=== PATIENT | female | born 2000 | race Caucasian/White ===

== ENCOUNTER 2018-01-24 20:05 | Inpatient (IN) | payer OTHER ==
[~2018-01-24] VITALS: Ht 170.2 cm; Wt 54.0 kg
--- NOTE | 2018-01-24 22:40 | NUR ---
Intake Assessment Assessment done at intake office. Patient is alert & oriented x4, ambulatory with a steady gait. She is very anxious, agitated, noted pacing in the room, wringing her hands and is being argumentative. Respiration even & unlabored. Pt does not appears intoxicated. Vitals taken immediately B/P 122/77, TX 109, RR 18, Temp 97.8, O2Sat 96%. Explained to pt unit protocols such as Q4H Vitals signs check & regarding destruction of any controlled substances brought to facility and handling of all medications. Dr. Patel made aware of pt's admission. Will continue admission process when pt arrives in the unit.
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
[2018-01-25] MEDS ORDERED: MAGNESIUM HYDROXIDE 30 ML LIQUID UDC PO PRN
[2018-01-25] MEDS ORDERED: LOPERAMIDE HCL 2 MG CAPSULE PO PRN ×2
[2018-01-25] MEDS ORDERED: LORAZEPAM 2 MG/1 ML VIAL IM PRN
[2018-01-25] MEDS ORDERED: METHOCARBAMOL 750 MG TABLET PO PRN
[2018-01-25] MEDS ORDERED: MAG HYDROX/AL HYDROX/SIMETH 30 ML LIQUID UDC PO PRN
[2018-01-25] MEDS ORDERED: LORAZEPAM 1 MG TABLET PO PRN
[2018-01-25] MEDS ORDERED: MIRALAX 17 GM POWD.PACK PO PRN
[2018-01-25] MEDS ORDERED: DICYCLOMINE HCL 20 MG TABLET PO PRN
[2018-01-25] MEDS ORDERED: ONDANSETRON 4 MG/2 ML VIAL IM PRN
[2018-01-25] MEDS ORDERED: ONDANSETRON ODT 4 MG TAB.RAPDIS SL PRN
[2018-01-25] MEDS ORDERED: BUPRENORPHINE HCL 2 MG TAB.SUBL SL PRN
[2018-01-25 01:24] LABS: *URINE HCG, QUAL NEGATIVE (NEGATIVE)
[2018-01-25 01:38] LABS: *AMPHETAMINE, URINE POSITIVE (NEGATIVE); *BARBITURATE, URINE NEGATIVE (NEGATIVE); *CANNABINOID, URINE POSITIVE (NEGATIVE); *COCCAINE, URINE NEGATIVE (NEGATIVE); *OPIATE, URINE NEGATIVE (NEGATIVE); *PHENCYCLIDINE SCREEN,URINE NEGATIVE (NEGATIVE)
[2018-01-25] MEDS ORDERED: CARI1.5C PO (02:55)
[2018-01-25] MEDS ORDERED: BUSP5TAB3 PO (02:55)
[2018-01-25] MEDS ORDERED: CARI3CAP PO (02:55)
[2018-01-25 04:00] VITALS: BP 109/74
--- NOTE | 2018-01-25 07:23 | NUR ---
End of Shift Note: Patient is a 17 y.o female admitted last night for medically supervised withdrawal from multiple substances. Patient is alert & oriented x4, ambulatory with a steady gait. She does not appear intoxicated upon admission. She was a poor historian and she is avoidant to conversations. She was anxious and agitated during admission process. Pt was placed on PRN's to manage symptoms of withdrawal. No PRN's were given during my shift. COWS 6 CIWA 10 noted upon admission. Pt remained stable and vitals remained WNL. She was able to sleep for a total of 6 hours. Fluid intake is 500ml. Voided 1x with no bowel movement. Pt still asleep at this time. All needs attended. Safety measures in place. Will endorse pt to day shift nurse.
--- NOTE | 2018-01-25 07:58 | NUR ---
Start of shift note; Received report from night nurse. Patient is a 17 year old female admitted last night for medically supervised withdrawal from multiple substances. Patient was evaluated by MD last night and was placed on PRN medications for management of withdrawal symptoms. Patient's last COWS is 6 and last CIWA is 10 per endorsement, patient slept for 6 hours last night. Patient is AOX4, presented with anxiety, agitation ,patient is guarded and avoidant to eye contact and avoids conversation. Educated patient regarding the importance of compliance to treatment plan. Encouraged patient to participate in group therapy and activities. All safety measures secured. Will continue to monitor patient.
[2018-01-25 08:00] VITALS: BP 101/52
[2018-01-25 08:17] LABS: BASOPHILS % (AUTO) 0.2 % (0.0-2.0); EOSINOPHILS % (AUTO) 0.5 % (0.0-7.0); HEMATOCRIT 35.4 % (31.2-41.9); HEMOGLOBIN 12.2 g/dL (10.9-14.3); LYMPHOCYTES # (AUTO) 2.7 K/uL (20.0-40.0); LYMPHOCYTES % (AUTO) 37.6 % (20.5-74.5); MEAN CORPUSCULAR HEMOGLOBIN 30.7 uug (24.7-32.8); MEAN CORPUSCULAR HGB CONC 35 g/dL (32.3-35.6); MONOCYTES # (AUTO) 0.6 K/uL (2.0-10.0); MONOCYTES % (AUTO) 7.6 % (0-11); NEUTROPHILS # (AUTO) 3.9 K/uL (1.8-8.9); NEUTROPHILS % (AUTO) 54.1 % (31.5-64.5); PLATELET COUNT (AUTO) 172 K/uL (179-408); RED BLOOD CELL COUNT(AUTO) 3.98 MIL/uL (3.63-4.92); WHITE BLOOD COUNT (AUTO) 7.2 K/uL (3.8-11.8)
--- NOTE | 2018-01-25 08:30 | NUR ---
Nurse assessment note; Patient presented with anxiety, agitation, muscle aches, nasal stuffiness, reports chills/flushing, tremors, yawning and avoidant to eye contact. Patient's current COWS score is 7 and last CIWA 5. Patient last consumed ETOH/benzodiazepine, methamphetamine yesterday 01/24/18 prior to admission. Patient last consumed opiate on 11/23/17. Encouraged patient to verbalize feelings and report further withdrawal symptoms. Patient requested to be left alone so she can rest at this time. Will closely monitor patient.
[2018-01-25] MEDS: THIAMINE HCL 100 MG TABLET PO SCH (09:00)
[2018-01-25] MEDS ORDERED: TUBERCULIN,PURIF.PROT.DERIV. 5 TU/0.1 ML TEST ID ONE (09:00)
[2018-01-25] MEDS: MULTIVITAMINS,THERAPEUTIC TABLET PO SCH (09:00)
[2018-01-25] MEDS: FOLIC ACID 1 MG TABLET PO SCH (09:00)
[2018-01-25 09:42] LABS: ETHANOL < 3 MG/DL (0-0)
[2018-01-25 11:01] LABS: ALANINE AMINOTRANSFERASE 33 U/L (14-59); ALKALINE PHOSPHATASE 66 U/L (50-136); ASPARTATE AMINOTRANSFERASE 60 U/L (15-37); BILIRUBIN,TOTAL 1.1 mg/dL (0.2-1.0); CARBON DIOXIDE 21 mmol/L (21-32); CHLORIDE 107 mmol/L (98-107); CREATININE 0.8 mg/dL (0.6-1.3); GLUCOSE 78 mg/dL (74-106); POTASSIUM 3.5 mmol/L (3.5-5.1); TOTAL PROTEIN, SERUM 6.7 g/dL (6.4-8.2); UREA NITROGEN, BLOOD 14 mg/dL (7-18)
--- NOTE | 2018-01-25 11:45 | NUR ---
MD communication; Dr. Lawton is up on the unit. MD evaluated patient. MD gave verbal order to discontinue Subutex 4mg SL PRN. MD also ordered Nicotine gum 4mg Q2H max of 8 pieces per day. Orders carried out.
--- NOTE | 2018-01-25 11:54 | NUR ---
Patient communication; Patient is AOX4, clarified information with patient. Patient reported that she was discharged from [facility] by the [facility] on 01/21/18 PM patient then relapsed after being discharged from treatment Center. Patient also admitted that she was diagnosed with bipolar disorder. Psychiatrist to evaluate patient today. Patient reported that her mother convinced her to come to detox. Educated patient regarding the importance of sobriety, patient verbalized understanding. Patient agreed to adhere to unit protocols and policies. Encouraged patient to verbalize feelings and to participate in group therapies, patient verbalized understanding.
[2018-01-25 12:00] VITALS: BP 90/64
--- NOTE | 2018-01-25 12:00 | NUR ---
Nurse assessment note; Patient presented with anxiety, agitation, muscle aches, nasal stuffiness, reports chills/flushing, tremors and avoidant to eye contact. Patient's COWS score remained 7 and CIWA is 5. Encouraged patient to verbalize feelings and report further withdrawal symptoms. Per MD patient's s/s at this time does not require PRN Ativan , to administer PRN medication later when patient starts to show significant s/s of withdrawals. Will closely monitor patient.
[2018-01-25] MEDS: NICOTINE 14 MG/24HR PATCH TD SCH (12:55)
--- NOTE | 2018-01-25 12:57 | NUR ---
MD communication; Patient requested for nicotine patch. MD gave verbal order for Nicotine patch 14mg. Order carried out and given to patient.
[2018-01-25] MEDS: HYDROXYZINE PAMOATE 25 MG CAPSULE PO PRN ×2 (13:02→20:16)
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
--- NOTE | 2018-01-25 13:06 | NUR ---
PRN medication; Patient appears anxious, MD ordered to administer PRN Vistaril 25mg PO for anxiety. Medication given as per MD order. Will continue to monitor patient.
[2018-01-25 13:39] LABS: LIPASE 138 U/L (73-393)
--- NOTE | 2018-01-25 14:06 | NUR ---
Re-assessment; Patient appears less anxious, PRN Vistaril noted to be effective.
--- NOTE | 2018-01-25 15:17 | NUR ---
Re-assessment; Patient verbalized effectiveness of Robaxin, patient denies muscle aches at this time. Addendum: 01/25/18 at 0902 by KENYA RAMIREZ LVN Clarification ; Re-assessment done at 0637
[2018-01-25] MEDS: LORAZEPAM 1 MG TABLET PO PRN ×2 (15:33→20:12)
--- NOTE | 2018-01-25 15:33 | NUR ---
PRN Ativan; Patient is currently showing significant s/s of withdrawals manifested by increased anxiety, agitation, diaphoresis, tremors, restless legs, muscle aches, fatigue with current CIWA score of 11 and COWS score of 6. PRN Ativan 1mg PO given for elevated CIWA score. Patient verbalized that she is having cravings, new coping mechanisms introduced to patient to help cope with stress and cravings. Encouraged patient to participate in group therapy and activities. Will continue to monitor patient.
[2018-01-25 16:00] VITALS: BP 114/68
[2018-01-25] MEDS: busPIRone 5 MG TABLET PO SCH (16:09)
[2018-01-25] MEDS: METHOCARBAMOL 500 MG TABLET PO PRN (16:17)
--- NOTE | 2018-01-25 16:17 | NUR ---
PRN Robaxin; Patient is complaining of muscle aches, mild diffuse discomfort. PRN Robaxin 750mg PO given for muscle aches per MD order. Will continue to monitor patient.
--- NOTE | 2018-01-25 16:33 | NUR ---
Re-assessment Ativan; Patient appears less anxious and less agitated. Patient's CIWA score went down from 11 to CIWA score of 8. PRN Ativan noted to be effective.
--- NOTE | 2018-01-25 17:38 | NUR ---
Therapist prompted client to attend daily group therapy sessions. Client stated that she would if she was feeling well enough to do so.
--- NOTE | 2018-01-25 18:40 | NUR ---
End of shift note; Patient is AOX4, presented with anxiety, sweats, muscle aches, loss of motivation, complaining of fatigue and loss of appetite. Patient received PRN Ativan 1mg PO and PRN Robaxin 750 mg PO, both noted to be effective. Patient was placed on PRN medications only to help reduce withdrawal symptoms, no taper required per MD. Patient agreed to adhere to unit protocol and policies and agreed to remain compliant with treatment plan. All safety measures secured. Met all needs.
--- NOTE | 2018-01-25 19:30 | NUR ---
START OF SHIFT Pt is a 17 y/o female admitted on 01/24/18 for ETOH, benzo, opiate and meth withdrawal. Pt has PRN Ativan available at this time. Last COWS 6 and CIWA 8 and PRN Ativan 1 mg, Robaxin and Vistaril administered during day shift. Upon assessment pt presents with anxiety, agitation, disheveled appearance, unkempt room, chills, headache, body aches, depressed affect, photosensitivity, sensitivity to sounds, difficulty falling asleep, poor eye contact, slumped posture, poor appetite, and restlessness. Pt verbalizes cravings and feelings of wanting to leave AMA. Medications due. Safety measures in place. Call light within reach. Will continue to monitor.
[2018-01-25 20:00] VITALS: BP 100/46
--- NOTE | 2018-01-25 20:00 | NUR ---
COWS 11 AND CIWA 15 Pt presents with anxiety, agitation, chills, headache, body aches, photosensitivity, sensitivity to sounds, nausea, poor appetite, and restlessness. Pt refuses Zofran for nausea. No episodes of vomiting.
[2018-01-25] MEDS: VRAYLAR 3 MG PO SCH (20:12)
[2018-01-25] MEDS: NICOTINE POLACRILEX 4 MG GUM-PK OF TEN BC PRN (20:12)
--- NOTE | 2018-01-25 20:12 | NUR ---
PRN ATIVAN 1 MG, MOTRIN, TYLENOL, BENADRYL AND NICOTINE GUM ADMINISTRATION CIWA 15. Pt presents with anxiety, agitation, restlessness, headache, nausea, photosensitivity, sensitivity to sounds, and chills. Pt refuses Zofran for nausea. Pt complains of 7/10 pain, headache and body aches. Pt requests sleep aid and nicotine gum for cravings. Nicotine patch removed from morning. Safety measures in place. Call light within reach. Will continue to monitor.
[2018-01-25] MEDS: ACETAMINOPHEN 325 MG TABLET PO PRN (20:13)
[2018-01-25] MEDS: diphenhydrAMINE 50 MG CAPSULE PO PRN (20:13)
[2018-01-25] MEDS: IBUPROFEN 600 MG TABLET PO PRN (20:13)
[2018-01-25 21:05] VITALS: BP 111/61
[2018-01-25] MEDS: CLONIDINE HCL 0.1 MG TABLET PO PRN (21:09)
--- NOTE | 2018-01-25 21:12 | NUR ---
PRN ATIVAN, MOTRIN, TYLENOL, BENADRYL REASSESSMENT AND CLONIDINE ADMINISTRATION CIWA 12. Pt has improvement in agitation and anxiety. Pt reports headache improved to tolerable level and reports persistent body aches 01/28. Pt remains awake, but is laying in bed and appears fatigued. Pt requests Clonidine for persistent anxiety, agitation, and chills. BP 111/61 and HR 80. Safety measures in place. Call light within reach. Will continue to monitor. Clonidine administered at 2109.
--- NOTE | 2018-01-25 22:09 | NUR ---
PRN CLONIDINE REASSESSMENT Pt laying in bed with eyes closed, medication noted effective. Respirations even and unlabored. Safety measures in place. Call light within reach. Will continue to monitor.
[2018-01-26] VITALS: BP 98/43
--- NOTE | 2018-01-26 | NUR ---
COWS/CIWA DEFERRED Pt laying in bed with eyes closed, COWS/CIWA deferred, to be assessed when pt is awake per orders. Respirations even and unlabored. Safety measures in place. Call light within reach. Will continue to monitor.
[2018-01-26 04:00] VITALS: BP 86/47
--- NOTE | 2018-01-26 07:00 | NUR ---
END OF SHIFT Pt is a 17 y/o female admitted on 01/24/18 for ETOH, benzo, opiate and meth withdrawal. Pt has PRN Ativan available at this time. Pt presented with anxiety, agitation, disheveled appearance, unkempt room, chills, headache, body aches, depressed affect, photosensitivity, sensitivity to sounds, difficulty falling asleep, poor eye contact, slumped posture, poor appetite, and restlessness. Pt verbalizes persistent cravings and feelings of wanting to leave AMA. Scheduled medications and PRN Motrin, Tylenol, Ativan 1 mg, Benadryl, Nicotine gum and Clonidine administered, effective in S/S of withdrawal AEB COWS 11 and CIWA 15 lowered to COWS 15 and CIWA 12. Nicotine patch removed prior to nicotine gum administration. Pt slept 9 hours. Intake 355 ml, void x 1, stool x 0. Safety measures in place. Call light within reach. Pts needs have been met. Endorsed to day shift nurse.
--- NOTE | 2018-01-26 07:45 | NUR ---
START OF SHIFT NOTE Received repot from night nurse,17 year old female admitted for Benzo, Opioids,meth withdrawal. Patient not on any taper but PRN'S available. Per endorsement pt received PRN Motrin, Benadryl, Clonidine, nicotine gum, Ativan effective per night nurse. Received pt alert awake oriented x4, complaining of anxiety, agitation, restless. Patient is due for scheduled medications. Educated pt regarding plan of care for the day and medications regimen. All safety measures in place. Call light within reach. Will cont to monitor.
[2018-01-26 08:00] VITALS: BP 90/62
--- NOTE | 2018-01-26 08:00 | NUR ---
COWS/CIWA ASSESSMENT Patient is alert awake oriented x4 continues to exhibit s/s of withdrawal such as nausea, bilateral hand tremors, sweats, anxious and agitated, yawning, CIWA score -11, and COWS noted-11. will cont to monitor.
[2018-01-26] MEDS: THIAMINE HCL 100 MG TABLET PO SCH (08:34)
[2018-01-26] MEDS: MULTIVITAMINS,THERAPEUTIC TABLET PO SCH (08:34)
[2018-01-26] MEDS: busPIRone 5 MG TABLET PO SCH ×3 (08:34→16:03)
[2018-01-26] MEDS: NICOTINE 14 MG/24HR PATCH TD SCH (08:34)
[2018-01-26] MEDS: FOLIC ACID 1 MG TABLET PO SCH (08:34)
[2018-01-26] MEDS: HYDROXYZINE PAMOATE 25 MG CAPSULE PO PRN ×3 (08:37→21:46)
[2018-01-26] MEDS: VRAYLAR 1.5 MG PO SCH (08:37)
--- NOTE | 2018-01-26 08:37 | NUR ---
PRN VISTARIL Patient complaining of anxiety, agitation, restless. Patient provided with non pharmacological intervention with no relief. PRN Vistaril 25 mg PO given as ordered. Will cont to monitor and reassess the patient.
--- NOTE | 2018-01-26 09:37 | NUR ---
VISTARIL REASSESSMENT Per patient Vistaril was effective anxiety, agitation, restless subsided.
[2018-01-26] MEDS ORDERED: LORAZEPAM 1 MG TABLET PO PRN ×2 (11:15)
[2018-01-26 12:00] VITALS: BP 102/60
--- NOTE | 2018-01-26 12:00 | NUR ---
COWS/CIWA ASSESSMENT Patient is alert awake oriented x4 continues to exhibit s/s of withdrawal such as bilateral hand tremors, sweats, anxious and agitated, restless, CIWA score -10, and COWS noted-10. Will cont to monitor.
--- NOTE | 2018-01-26 15:00 | NUR ---
Psychiatrist and MD Communication Pt is verbalizing wanting to go AMA. She made a phone call to her Mother with case management. During the conversations the pt's Mother told her that if is she leaves [facility] and uses drugs/alcohol she will . Pt stated, "I don't care". Clinical therapist was asked to speak with patient and she verbalized the same thing. Charge nurse asked pt if she is thinking of harming herself and she stated, "I don't know" and quickly walked out of her room. Psychiatrist made aware. Crisis team called at 1454. They are to arrive within one hour. Pt is emotionally labile. She requires constant redirecting by all staff. MD is aware.
[2018-01-26] MEDS: CLONIDINE HCL 0.1 MG TABLET PO PRN ×2 (15:55→22:32)
[2018-01-26] MEDS: METHOCARBAMOL 500 MG TABLET PO PRN (15:58)
[2018-01-26] MEDS: IBUPROFEN 600 MG TABLET PO PRN (15:58)
--- NOTE | 2018-01-26 15:58 | NUR ---
PRN MEDICATIONS Patient reported increased in anxiety, agitation, restless, body aches 5/10, myalgia 6/10, chills, sweats. Patient noted pacing in the hallway. Patient provided with non pharmacological intervention with no relief. PRN Vistaril, Clonidine, Motrin, Robaxin administered as ordered. Will cont to monitor and reassess the patient.
[2018-01-26 16:00] VITALS: BP 116/61
--- NOTE | 2018-01-26 16:00 | NUR ---
COWS/CIWA ASSESSMENT Patient is alert awake oriented x4 continues to exhibit s/s of withdrawal such as body aches, bilateral hand tremors, sweats, anxious and agitated, restless, CIWA score -9, and COWS noted-9. Will cont to monitor.
[2018-01-26] MEDS ORDERED: NICOTINE POLACRILEX 4 MG GUM-PK OF TEN BC PRN (16:15)
--- NOTE | 2018-01-26 16:15 | NUR ---
Nursing Note Doris from crisis team here to evaluate patient. Pt denies being suicidal. Pt stated that she will stay until tomorrow but is going to use [drugs/alcohol] upon leaving and there's nothing we can do about it. It pt verbalizes that she wants to leave before tomorrow we are to call crisis team and she will be placed on a hold. Pt is cussing and raising her voice in the halls. She requires frequent redirecting by multiple staff members. MD notified and she will be re-evaluated tomorrow to see if she is appropriate for discharge. Psychiatrist made aware.
[2018-01-26] MEDS: NICOTINE POLACRILEX 4 MG GUM-PK OF TEN BC PRN ×2 (16:28→21:09)
--- NOTE | 2018-01-26 16:28 | NUR ---
PRN NICOTINE GUM Patient reported increased in nicotine craving. PRN Nicotine gum 4mg given as ordered. Will cont to monitor.
--- NOTE | 2018-01-26 16:58 | NUR ---
PRN REASSESSMENT Medications were effective patient noted resting calmly in her room. Breathing normal no s/s of distress noted.
--- NOTE | 2018-01-26 17:28 | NUR ---
NICOTINE REASSESSMENT Per patient nicotine craving subsided nicotine gum was effective.
--- NOTE | 2018-01-26 19:09 | NUR ---
END OF SHIFT NOTE Gave report to night nurse, 17 year old female admitted for ETOH, Opioids and meth withdrawal. Patient is currently not on any taper but PRN'S available for s/s of withdrawal. Patient presented with anxiety, agitation, restless, sad facial expression, depressed, poor eye contact, unkempt room, sweats chills, myalgia, body aches. Patient was given scheduled and PRN medications noted to be effective. Last CIWA and COWS score noted -9. Patient currently resting in her room. Encourage patient to attend groups activities to learn new coping skills. Encourage PO fluids as tolerated. All safety measures in place, call light within reach. Patient endorsed to night nurse in stable condition.
--- NOTE | 2018-01-26 19:30 | NUR ---
START OF SHIFT Pt is a 17 year old female admitted to [facility] for ETOH, Opioids and meth withdrawal. Patient is currently not on any taper but has PRN' medications available for s/s of withdrawal.Per day shift endorsement,Pt received PRN meds : Vistaril,Clonidine,Motrin and Robaxin and they were effective.Pt received sleeping comfortably in bed,breathing is even and non labored,all safety measures are in place,bed is locked in the lowest position with side rails up x 2,call light is within reach,no s/s of distress noted. Last CIWA and COWS score was 9.Will continue to monitor for safety and medicate per orders and as needed.
[2018-01-26 20:00] VITALS: BP 98/60
--- NOTE | 2018-01-26 20:00 | NUR ---
COWS / CIWA DEFERRED Pt remains sleeping in bed,breathing is even and non labored,all safety measures are in place,bed is locked in the lowest position with side rails up x 2,call light is within reach,no s/s of distress noted.Unable to assess for COWS/CIWA at this time d/t Pt being asleep.Will continue to monitor.
[2018-01-26] MEDS: VRAYLAR 3 MG PO SCH (21:08)
--- NOTE | 2018-01-26 21:09 | NUR ---
PRN NICOTINE GUM Pt is wake now,demanding to go to smoke,said "I am having nicotine withdrawal".PRN Nicotine gum given as ordered,will continue to monitor.
[2018-01-26] MEDS: diphenhydrAMINE 50 MG CAPSULE PO PRN (21:46)
[2018-01-26] MEDS: ACETAMINOPHEN 325 MG TABLET PO PRN (21:47)
--- NOTE | 2018-01-26 21:48 | NUR ---
PRN MEDS / COWS-CIWA ASSESSMENT. Pt is extremely anxious,preoccupied about her discharge.Focused on how she will be going to her boy friend's house upon discharge.PRN Vistaril given as ordered for anxiety,Tylenol given for general body ache 5/10 and PRN Benadryl given for insomnia. COWS/CIWA score is 8 at this time due to extreme anxiety/agitation and restlessness.Will continue to monitor.
--- NOTE | 2018-01-26 22:10 | NUR ---
PRN NICOTINE REASSESSMENT PT VERBALIZES A DECREASE IN NICOTINE CRAVING,RESTING IN ROOM.WILL CONTINUE TO MONITOR.
--- NOTE | 2018-01-26 22:32 | NUR ---
PRN MED PT REMAINS ANXIOUS AND RESTLESS. PRN VISTARIL IS NOT EFFECTIVE AT THIS TIME.PRN CLONIDINE GIVEN ORDERED.B/P .WILL CONTINUE TO MONITOR FOR EFFECTIVENESS.
--- NOTE | 2018-01-26 22:48 | NUR ---
PRN REASSESSMENT PT IS STILL AWAKE UNABLE TO SLEEP.BODY ACHE IS RELIEVED.WILL CONTINUE TO MONITOR.
--- NOTE | 2018-01-26 23:35 | NUR ---
PRN REASSESSMENT PT IS CALM AND RESTING IN BED WITH EYES CLOSED.NO S/S OF DISTRESS NOTED.WILL CONTINUE TO MONITOR.
--- NOTE | 2018-01-27 | NUR ---
COWS/CIWA DEFERRED; V/S REFUSED. PT IS RESTING IN BED WITH EYES CLOSED,NO S/S OF DISTRESS NOTED.APPEARS TO BE IN DEEP SLEEP.
[2018-01-27 04:00] VITALS: BP 90/59
--- NOTE | 2018-01-27 04:00 | NUR ---
COWS/CIWA DEFERRED PT IS RESTING IN BED WITH EYES CLOSED,NO S/S OF DISTRESS NOTED.UNABLE TO ASSESS FOR COWS/CIWA AT THIS TIME.WILL CONTINUE TO MONITOR.
--- NOTE | 2018-01-27 06:43 | NUR ---
END OF SHIFT Pt is a 17 year old female admitted to [facility] for ETOH, Opioids and meth withdrawal. Patient is currently not on any taper medications but has PRN medications available for s/s of withdrawal.Pt received the following PRN meds : Vistaril, Clonidine, Tylenol and Benadryl and they were effective.Pt has been sleeping most of time, slept 9 hrs, fluid intake was 355 mls,voided x 1.All safety measures are in place,bed is locked in the lowest position with side rails up x 2,call light is within reach,no s/s of distress noted. Last CIWA and COWS score was 8 at 2148.Midnight and 0400 assessments were deferred due to Pt being asleep.Will endorse care to oncoming shift nurse.
[2018-01-27 08:00] VITALS: BP 90/60
--- NOTE | 2018-01-27 08:20 | NUR ---
START OF SHIFT: Received Pt A/O X4. She is fidgety. She presents with anxious mood and congruent affect. She reports anxiety and states" I want to leave". She states she is not ready to stop using. Will notify multidisciplinary team. Encouraged her to comply with treatment plan. COWS 4. CIWA 8. She reports anxiety,intermittent chills and nausea. Will continue to monitor and offer support.
[2018-01-27] MEDS: FOLIC ACID 1 MG TABLET PO SCH (09:07)
[2018-01-27] MEDS: MULTIVITAMINS,THERAPEUTIC TABLET PO SCH (09:07)
[2018-01-27] MEDS: busPIRone 5 MG TABLET PO SCH (09:07)
[2018-01-27] MEDS: NICOTINE 14 MG/24HR PATCH TD SCH (09:08)
[2018-01-27] MEDS: NICOTINE POLACRILEX 4 MG GUM-PK OF TEN BC PRN (09:08)
[2018-01-27] MEDS: THIAMINE HCL 100 MG TABLET PO SCH (09:08)
[2018-01-27] MEDS: VRAYLAR 1.5 MG PO SCH (09:08)
[2018-01-27] MEDS: HYDROXYZINE PAMOATE 25 MG CAPSULE PO PRN (10:01)
--- NOTE | 2018-01-27 11:20 | NUR ---
patient was seen By Charlie Clinical Director. per Laurie pt is alert and oriented to reality and does not meet criteria to be placed on a 5150 at this time
--- NOTE | 2018-01-27 11:39 | NUR ---
DISCHARGE AMA: Pt refused to comply with treatment plan and insisted on leaving AMA despite intervention from staff members.She denies S/I and H/I. She was educated about risks of leaving AMA. MD made aware and assessed Pt. Pt verbally expressed understanding of education. She was given a list of resources available. Belongings and medication returned. Pt was escorted out of facility by BABY STROLLER RENTAL CLERK at 11:34 AM.
[2018-01-27] MEDS ORDERED: VRAYLAR 3 MG PO SCH (12:46)
[2018-01-27] MEDS ORDERED: VRAYLAR 1.5 MG PO SCH (12:46)
[2018-01-28 04:06] LABS: HEPATITIS B SURFACE AG Negative (Negative)
== END 2018-01-27 11:30 | disposition left against medical advice (07) | DRG 894 ==
LOC: SRC 22:09
PROVIDERS: ADMIT Family Medicine Addiction Medicine; ATTEND Internal Medicine
PROC: HZ2ZZZZ Detoxification Services for Substance Abuse Treatment (ICD-10-PCS; principal; 2018-01-24)
PROC: HZ51ZZZ Individual Psychotherapy for Substance Abuse Treatment, Behavioral (ICD-10-PCS; 2018-01-27)
DX: F11.23 Opioid dependence with withdrawal (principal); F13.239 Sedative, hypnotic or anxiolytic dependence with withdrawal, unspecified; F15.23 Other stimulant dependence with withdrawal; Z59.0 Homelessness; Y90.0 Blood alcohol level of less than 20 mg/100 ml; Z82.0 Family history of epilepsy and other diseases of the nervous system; F43.10 Post-traumatic stress disorder, unspecified; F17.210 Nicotine dependence, cigarettes, uncomplicated; F31.9 Bipolar disorder, unspecified; Z91.5 Personal history of self-harm; F10.239 Alcohol dependence with withdrawal, unspecified
CPT/HCPCS: 36415; 80307; 80324; 80346; 80349; 83690; 83735; 84443; 84703; 85025; 86592; 86705; 86803; 87340; 87806; G0480; Q0163